=== PATIENT | male | born 1945 | race Caucasian/White ===

== ENCOUNTER → 2016-06-10 | Outpatient (CLI) | payer MEDICARE, OTHER ==
[~2016-06-10] MED LIST: ASPI-586 PO; MULT-890 PO; OMEG1CAP58 PO; ROSU40TA PO
== END ==
LOC: RT 10:37
PROVIDERS: ATTEND Internal Medicine
DX: I48.91 Unspecified atrial fibrillation (principal)
CPT/HCPCS: 93005